=== PATIENT | female | born 1995 | race Caucasian/White ===

== ENCOUNTER 2023-08-13 06:59 | Day surgery (SDC) | payer BC ==
[~2023-08-13] VITALS: Ht 154.9 cm; Wt 50.8 kg
[2023-08-13] MEDS ORDERED: SIMETHICONE 40 MG/0.6 ML ML ONE (07:06)
[2023-08-13 07:14] LABS: HCG,QUAL RESULT NEGATIVE (NEGATIVE)
[2023-08-13] MEDS: MEPERIDINE 100 MG INJ. 100 MG/ML VIAL ONE ×3 (07:41→07:47)
[2023-08-13] MEDS: MIDAZOLAM HCL 5 MG/5 ML VIAL ONE ×6 (07:41→07:53)
[2023-08-13] MEDS: DIPHENHYDRAMINE INJ 50 MG/ML VIAL ONE ×2 (07:50→07:53)
[2023-08-13 08:14] VITALS: O2SAT 95
[2023-08-13 10:05] VITALS: BP_SYST 99; PULSE 87; RESP 16
== END 2023-08-13 09:47 | disposition home or self-care (01) ==
LOC: SDS 06:59 → SMU 07:00 → SDS 09:47
PROVIDERS: ATTEND Internal Medicine Gastroenterology
DX: R10.9 Unspecified abdominal pain (principal); K29.50 Unspecified chronic gastritis without bleeding; K21.00 Gastro-esophageal reflux disease with esophagitis, without bleeding; K29.80 Duodenitis without bleeding; F41.9 Anxiety disorder, unspecified; F32.A Depression, unspecified; K58.9 Irritable bowel syndrome, unspecified; Z91.013 Allergy to seafood; Z79.899 Other long term (current) drug therapy
CPT/HCPCS: 43239; 99152; 84703; 88305; 88312; 88313; G0378; J1200; J2250; J2175